=== PATIENT | male | born 1995 | race Caucasian/White ===

== ENCOUNTER 2019-07-15 08:51 | Emergency (ER) | payer BC ==
[~2019-07-15] VITALS: Ht 170.2 cm; Wt 89.0 kg
[2019-07-15 09:41] LABS: BASOPHILS % (AUTO) 0.2 % (0-1); EOSINOPHILS # (AUTO) 0.1 X10'3 (0-0.9); EOSINOPHILS % (AUTO) 1.1 % (0-6); HEMATOCRIT 52.5 % (42.0-52.0); LYMPHOCYTES # (AUTO) 2.5 X10'3 (1.1-4.8); LYMPHOCYTES % (AUTO) 25.3 % (21-51); MEAN CORPUSCULAR HEMOGLOBIN 31.2 PG (27.0-31.0); MEAN CORPUSCULAR HGB CONC 34.3 g/dL (33.0-36.5); MEAN CORPUSCULAR VOLUME 90.9 FL (78-98); MEAN PLATELET VOLUME 7.2 FL (7.4-10.4); MONOCYTES # (AUTO) 0.6 X10'3 (0-0.9); MONOCYTES % (AUTO) 5.7 % (2-12); NEUTROPHILS # (AUTO) 6.8 X10'3 (1.8-7.7); NEUTROPHILS % (AUTO) 67.7 % (42-75); PLATELET COUNT 268 X10'3 (140-440); RED BLOOD COUNT 5.77 X10'6 (4.70-6.10); RED CELL DISTRIBUTION WIDTH 12.7 % (11.5-14.5)
[2019-07-15 09:44] LABS: CLARITY,URINE SLIGHTLY CLOUDY (Clear); COLOR,URINE YELLOW (Yellow); GLUCOSE, URINE NEGATIVE (Neg); KETONES,URINE NEGATIVE (Neg); LEUKOCYTE ESTERASE ,URINE NEGATIVE (Neg); NITRITES, URINE NEGATIVE (Neg); OCCULT BLOOD,URINE TRACE-INTACT (Neg); PROTEIN,URINE NEGATIVE (Neg); UROBILINOGEN,URINE 0.2 E.U/dL (0.2-1.0)
[2019-07-15] MEDS ORDERED: normal saline 1000ML IV soln IVB ONE (09:45)
[2019-07-15] MEDS ORDERED: ondansetron/PF 4mg/2ml inj IV ONE (09:45)
[2019-07-15] MEDS ORDERED: morphine 4 MG/ML inj SYRINge IV PRN (09:45)
[2019-07-15 09:50] LABS: UA COLLECTION TYPE VOIDED
[2019-07-15 09:51] LABS: BACTERIA,URINE FEW /HPF (Neg); MUCUS STRANDS FEW /LPF (Neg); RBC,URINE 0-2 /HPF (0-2); SQUAMOUS EPITHELIAL CELL,UR FEW /LPF (FEW); WBC,URINE 0-4 /HPF (0-4)
[2019-07-15 10:00] LABS: ALANINE AMINOTRANSFERASE 38 U/L (12-78); ALBUMIN 4.1 G/DL (3.4-5.0); ALBUMIN/GLOBULIN RATIO 1.1 (1.1-1.5); ALKALINE PHOSPHATASE 85 IU/L (46-116); ANION GAP 11 (8-16); ASPARTATE AMINO TRANSFERASE 17 U/L (10-37); BILIRUBIN,TOTAL 0.4 MG/DL (0.1-1.0); BLOOD UREA NITROGEN 18 MG/DL (7-18); BUN/CREATININE RATIO 18.4 (5.4-32.0); CHLORIDE 104 MMOL/L (99-107); CREATININE 0.98 MG/DL (0.60-1.10); GLUCOSE 94 MG/DL (70-104); LIPASE 70 U/L (73-393); SODIUM 141 MMOL/L (135-145); TOTAL PROTEIN 7.8 G/DL (6.4-8.2); eGFR > 90 ML/MIN
--- NOTE | 2019-07-15 10:17 | NUR ---
IV site obtained, zofran given for nausea. Pt's IV fluid and morphine to be administered upon return from CT scan. Pt transported to CT via w/c at this time.
[2019-07-15] MEDS ORDERED: iohexol 300mg/ml 100ml inj. ONE (10:24)
--- NOTE | 2019-07-15 11:04 | NUR ---
Pt reports the pain in the left lower quadrant is increased from prior to the pain medication. Pt's IV fluid bolus is infusing wide open.
[2019-07-15] MEDS ORDERED: sucralfate 1gm/10ml UD suspension PO STA (12:03)
[2019-07-15] MEDS ORDERED: mag hydrox/Alum hydrox/simeth 30ml oral suspension PO ONE (12:05)
[2019-07-15] MEDS ORDERED: LIDOcaine Viscous 15ml cup MM PRN (12:05)
[2019-07-15 12:22] VITALS: BP 109/81
--- NOTE | 2019-07-15 12:29 | NUR ---
PT GIVEN GI COCKTAIL AND PT AMBULATED TO BR WITH STEADY GAIT
[2019-07-15] MEDS ORDERED: OMEP40CA13 PO (13:11)
[2019-07-15] MEDS ORDERED: HYDR-3965 PO (13:11)
== END 2019-07-15 13:31 | disposition home or self-care (01) ==
LOC: ER 08:52
DX: R10.12 Left upper quadrant pain (principal); R19.7 Diarrhea, unspecified; R10.32 Left lower quadrant pain; Z98.890 Other specified postprocedural states; Z90.49 Acquired absence of other specified parts of digestive tract; Z79.899 Other long term (current) drug therapy
CPT/HCPCS: 36415; 74177; 76700; 80053; 81001; 83690; 85025; 85610; 96361; 96374; 96375; 99284; J2270; J2405; J7030; Q9967

== ENCOUNTER 2020-11-04 13:52 | Emergency (ER) | payer BC, OTHER ==
[~2020-11-04] VITALS: Ht 170.2 cm; Wt 69.1 kg
[2020-11-04 14:59] LABS: BASOPHILS % (AUTO) 0.2 % (0-1); EOSINOPHILS # (AUTO) 0.1 X10'3 (0-0.9); EOSINOPHILS % (AUTO) 0.6 % (0-6); HEMATOCRIT 50.9 % (42.0-52.0); HEMOGLOBIN 17.4 g/dl (14.0-17.9); LYMPHOCYTES # (AUTO) 2.7 X10'3 (1.1-4.8); LYMPHOCYTES % (AUTO) 22.2 % (21-51); MEAN CORPUSCULAR HEMOGLOBIN 31.8 PG (27.0-31.0); MEAN CORPUSCULAR HGB CONC 34.2 g/dL (33.0-36.5); MEAN CORPUSCULAR VOLUME 93.1 FL (78-98); MEAN PLATELET VOLUME 7.2 FL (7.4-10.4); MONOCYTES # (AUTO) 0.6 X10'3 (0-0.9); MONOCYTES % (AUTO) 4.9 % (2-12); NEUTROPHILS # (AUTO) 8.7 X10'3 (1.8-7.7); NEUTROPHILS % (AUTO) 72.1 % (42-75); PLATELET COUNT 343 X10'3 (140-440); RED BLOOD COUNT 5.47 X10'6 (4.70-6.10); RED CELL DISTRIBUTION WIDTH 12.8 % (11.5-14.5)
[2020-11-04 15:07] LABS: ALANINE AMINOTRANSFERASE 23 U/L (12-78); ALBUMIN 4.4 G/DL (3.4-5.0); ALBUMIN/GLOBULIN RATIO 1.2 (1.1-1.5); ANION GAP 9 (8-16); ASPARTATE AMINO TRANSFERASE 12 U/L (10-37); BILIRUBIN,TOTAL 0.4 MG/DL (0.1-1.0); BLOOD UREA NITROGEN 13 MG/DL (7-18); BUN/CREATININE RATIO 13.5 (5.4-32.0); CALCIUM 9.1 MG/DL (8.5-10.1); CHLORIDE 103 MMOL/L (99-107); CREATININE 0.96 MG/DL (0.60-1.10); GLUCOSE 98 MG/DL (70-104); POTASSIUM 4.2 MMOL/L (3.5-5.1); SODIUM 139 MMOL/L (135-145); TOTAL CARBON DIOXIDE 26.7 MMOL/L (24-32); TOTAL PROTEIN 8.1 G/DL (6.4-8.2); eGFR > 90 ML/MIN
[2020-11-04 15:08] LABS: ALKALINE PHOSPHATASE 114 IU/L (46-116); ETHANOL < 0.010 GM/DL (0.0-0.010)
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
[2020-11-04 15:38] LABS: CLARITY,URINE CLEAR (Clear); COLOR,URINE STRAW (Yellow); GLUCOSE, URINE NEGATIVE (Neg); KETONES,URINE NEGATIVE (Neg); LEUKOCYTE ESTERASE ,URINE NEGATIVE (Neg); NITRITES, URINE NEGATIVE (Neg); OCCULT BLOOD,URINE NEGATIVE (Neg); PH,URINE 6.5 (4.8-8.0); PROTEIN,URINE NEGATIVE (Neg)
[2020-11-04 15:40] LABS: UA COLLECTION TYPE NON-SPECIFIED
[2020-11-04 15:45] LABS: URINE AMPHETAMINE SCREEN NEGATIVE (Neg); URINE BARBITUATE SCREEN NEGATIVE (Neg); URINE BENZODIAZEPINES SCREEN NEGATIVE (Neg); URINE CANNABINOID SCREEN POSITIVE (Neg); URINE COCAINE SCREEN NEGATIVE (Neg); URINE METHADONE SCREEN NEGATIVE (Neg); URINE OPIATE SCREEN NEGATIVE (Neg); URINE PHENCYCLIDINE SCREEN NEGATIVE (Neg)
[2020-11-04] MEDS ORDERED: NO HOME MEDS (16:11)
--- NOTE | 2020-11-04 17:09 | NUR ---
Pt awake and sitting on edge of the bed. He is mildly anxious and restless but easily redirected and willing to talk. Pt remains having SI and desires to go in-pt for help.
--- NOTE | 2020-11-04 19:11 | NUR ---
[facility] AT BEDSIDE WITH PT
--- NOTE | 2020-11-04 19:56 | NUR ---
Pt placed on 5150 by [facility]
--- NOTE | 2020-11-04 20:03 | NUR ---
Pt is cooperative with 1:1 assessment. He states that he is not feeling suicidal right now and does not want to hurt himself, but he keeps having the thoughts of doing so. "I just want to do the right thing and get the help I need. "
--- NOTE | 2020-11-04 21:35 | NUR ---
[facility] called, Pt has been accepted at [facility]. Accepting Dr. is Dr. Hampton. Pt will be transferred in AM
--- NOTE | 2020-11-05 00:10 | NUR ---
pt asleep on R side, RR 16
--- NOTE | 2020-11-05 02:29 | NUR ---
Pt resting on back respirations even and unlabored
--- NOTE | 2020-11-05 04:20 | NUR ---
pt asleep on L side RR 14
[2020-11-05 05:37] VITALS: BP 123/81
--- NOTE | 2020-11-05 07:00 | NUR ---
Received pt asleep in bed without signs of distress.
--- NOTE | 2020-11-05 09:00 | NUR ---
Pt awoke for breakfast and is cooperative with am assessment. Pt is ok with going to [facility].
--- NOTE | 2020-11-05 11:00 | NUR ---
Pt resting quietly on bed without complaints.
--- NOTE | 2020-11-05 11:10 | NUR ---
[facility] discharge coordinator called to say they are ready for the patient to be transferred upstairs.
--- NOTE | 2020-11-05 11:50 | NUR ---
Pt was transferred upstairs to [facility] in w/c accompanied by Alejo FRANCOIS and .
== END 2020-11-05 11:50 | disposition home or self-care (01) ==
LOC: ER 13:53
DX: R45.851 Suicidal ideations (principal); Z90.89 Acquired absence of other organs
CPT/HCPCS: 36415; 80053; 80305; 80320; 81003; 85025; 99285

== ENCOUNTER 2020-11-05 09:36 | Inpatient (IN) | payer BC, MEDICAID ==
[~2020-11-05] VITALS: Ht 170.2 cm; Wt 66.8 kg
[~2020-11-05 09:36] MED LIST: NO HOME MEDS
[2020-11-05 12:00] VITALS: BP 138/89
[2020-11-05] MEDS ORDERED: acetaminophen 325mg tablet PO PRN ×2 (12:10)
[2020-11-05] MEDS ORDERED: traZODone 50mg tablet PO PRN (12:10)
[2020-11-05] MEDS ORDERED: magnesium hydroxide 30ml (MOM) UD suspension PO PRN (12:10)
[2020-11-05] MEDS ORDERED: LORazepam 1 MG tablet PO PRN (12:10)
[2020-11-05] MEDS ORDERED: mag hydrox/Alum hydrox/simeth 30ml oral suspension PO PRN (12:10)
[2020-11-05] MEDS ORDERED: loperamide 2mg capsule PO PRN (12:10)
--- NOTE | 2020-11-05 18:07 | NUR ---
ADMIT NOTE: Pt. admitted from ER overflow accompanied by security. Pt. restless and anxious upon arrival, stating, "I know my triggers". When RN asked pt. what he meant by this pt. stated, "nevermind". skin assessment done and admission process completed. Pt. cooperative with 1:1 and physical assessment. Pt. came to the ER for SI with plan to hang himself. However, when RN asked pt. if he was suicidal, pt. states, "no, I wouldn't act on it, I just had to say the right thing to get up here". Pt. reports heavy cannabis use "all day every day" up until 3 weeks ago. Pt. states 2.5 years ago he smoked cannabis "laced with something" and since then his has noticed "changes" in him. Pt.'s from him 6 months ago taking there kids with her. Pt. talked at length about home to get his and children back. Pt. reports he has a boy 4 years old and girl 1.5 y.o. Pt. Pt. reports he had a suicide attempt while in the [employer] 4 years ago after his first fiancee left him. Pt. reports he was given an honorable discharge out of the [employer] after 1 year because he could not wake up on time to go to formation sometimes. Pt. is bizarre at times, during skin assessment pt. stood at attention and stated, "Is this because we are getting deployed soon?". Pt. states he feels uneasy on the unit because "drug tweakers make him angry". Pt. reports passive SI. Denies HI, A/V hallucinations.
[2020-11-05 19:34] VITALS: BP 130/72
--- NOTE | 2020-11-05 23:56 | NUR ---
Nursing Progress Note: Legal hold:5150 Client on involuntary status for GD/DTS/DTO: DTS Report received from nurse with use of SBAR: Jeannine FRANCOIS Why are they here: Pt. admitted from ER overflow accompanied by security. Pt. restless and anxious upon arrival, stating, "I know my triggers". When RN asked pt. what he meant by this pt. stated, "nevermind". skin assessment done and admission process completed. Pt. cooperative with 1:1 and physical assessment. Pt. came to the ER for SI with plan to hang himself. However, when RN asked pt. if he was suicidal, pt. states, "no, I wouldn't act on it, I just had to say the right thing to get up here". Pt. reports heavy cannabis use "all day every day" up until 3 weeks ago. Pt. states 2.5 years ago he smoked cannabis "laced with something" and since then his has noticed "changes" in him. Pt.'s from him 6 months ago taking there kids with her. Pt. talked at length about how to get his and children back. Pt. reports he has a boy 4 years old and girl 1.5 y.o. Pt. reports he had a suicide attempt while in the [employer] 4 years ago after his first fiancee left him. Pt. reports he was given an honorable discharge out of the [employer] after 1 year because he could not wake up on time to go to formation sometimes. Pt. is bizarre at times, during skin assessment pt. stood at attention and stated, "Is this because we are getting deployed soon?". Pt. states he feels uneasy on the unit because "drug tweakers make him angry". Pt. reports passive SI. Denies HI, A/V hallucinations. Assessment What has happened this shift: At shift change pt is observed sitting in his room reading a book quietly. He is cooperative on assessment and talks about how being up here is "a little weird" but states "I am doing what I need to do." He explains that he is not currently feeling suicidal and he does not actually want to hurt or kill himself, but the thoughts were intrusive and came and went. "I want to be here, especially for my kids. 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 Pt then tells rfp writer that he has a supportive family and has been living with his parents. "I got weighed today and I was surprised at how little I weight, years ago I used to be 220. I would like to get back up to 175 I think that is a healthy weight for me." I haven't been eating that much though because I am in my parents house and that is their food, I don't want to eat it. I want to show them I can do it myself, I shouldn't need anyone's help." S/I, H/I: intrusive thought of SI that come and go, but pt states he does not want to hurt himself. A/VH: denies Sleep: see sleep assessment ADL's: self care Group attendance: NA Were meds taken: no meds scheduled Any med S/E: NA Mental Status Exam Appearance: clean, wearing green unit scrubs Eye contact: good eye contact Behavior: isolates to his room, talkative on assessment Speech: pressured at times Mood: reminiscing Affect: intense at times Thought process: Linear Thought Content: guilt about the past Cognition: fair Insight: fair Judgment: fair Interventions PRN's used: none Therapeutic interventions: 1:1 assessment at bedside, therapeutic listening, reassurance, Q15 minute safety checks Restraints/seclusion/emergency medication: none Justification of Continued Inpatient Treatment: Pt needs crisis intervention, medication stabilization. He continues to have intrusive SI thoughts.
[2020-11-06 07:18] VITALS: BP 130/90
[2020-11-06] MEDS ORDERED: ESCITALOPRAM OXALATE 5 MG TABLET PO ONE (10:10)
[2020-11-06 11:15] LABS: HEMOGLOBIN A1C 5.6 % (4.5-6.2)
[2020-11-06 11:22] LABS: CHOL/HDL RATIO 4.7 (0.00-4.99); CHOLESTEROL 182 MG/DL (0-200); HDL CHOLESTEROL 39 MG/DL (35-60); LDL CHOLESTEROL 116 MG/DL (50-100); TRIGLYCERIDES 209 MG/DL (20-135)
[2020-11-06] MEDS ORDERED: pneumococcal 23-VAL P-sac vacc 25 mcg/0.5ml vial IMVAC ONE (12:35)
--- NOTE | 2020-11-06 17:18 | NUR ---
Nursing Progress Note: Legal hold:5150 Client on involuntary status for GD/DTS/DTO: DTS Report received from nurse with use of SBAR: PRISCILA Cervantes Why are they here: Pt. admitted from ER overflow accompanied by security. Pt. restless and anxious upon arrival, stating, "I know my triggers". When RN asked pt. what he meant by this pt. stated, "nevermind". skin assessment done and admission process completed. Pt. cooperative with 1:1 and physical assessment. Pt. came to the ER for SI with plan to hang himself. However, when RN asked pt. if he was suicidal, pt. states, "no, I wouldn't act on it, I just had to say the right thing to get up here". Pt. reports heavy cannabis use "all day every day" up until 3 weeks ago. Pt. states 2.5 years ago he smoked cannabis "laced with something" and since then his has noticed "changes" in him. Pt.'s from him 6 months ago taking there kids with her. Pt. talked at length about how to get his and children back. Pt. reports he has a boy 4 years old and girl 1.5 y.o. Pt. reports he had a suicide attempt while in the [employer] 4 years ago after his first fiancee left him. Pt. reports he was given an honorable discharge out of the [employer] after 1 year because he could not wake up on time to go to formation sometimes. Pt. is bizarre at times, during skin assessment pt. stood at attention and stated, "Is this because we are getting deployed soon?". Pt. states he feels uneasy on the unit because "drug tweakers make him angry". Pt. reports passive SI. Denies HI, A/V hallucinations. Assessment What has happened this shift: Received pt sleeping in bed at shift change. Patient was awakened by staff to attend breakfast in the community room. Dr. Hampton ordered Lexapro 5 mg which was given as now dose. Lexapro will be increased to 10 mg 11/07/20. Patient is medication compliant. Patient denies SI/HI. He is mostly concerned about his children, that his has the children at this time, and he only has supervised visitation. S/I, H/I: Denies. A/VH: denies Sleep: 6.5 hrs NOC ADL's: Independent. Group attendance: NA Were meds taken: Yes. Any med S/E: NA Mental Status Exam Appearance: clean, wearing green unit scrubs Eye contact: good eye contact Behavior: isolates to his room Speech: WNL Mood: Depressed. Affect: frustrated over losing children. Thought process: Linear Thought Content: Seeing his children. Cognition: fair Insight: fair Judgment: fair Interventions PRN's used: none Therapeutic interventions: 1:1 assessment at bedside, therapeutic listening, reassurance, Q15 minute safety checks Restraints/seclusion/emergency medication: none Justification of Continued Inpatient Treatment: Pt needs crisis intervention, medication stabilization. He continues to have intrusive SI thoughts.
[2020-11-06 19:21] VITALS: BP 130/73
--- NOTE | 2020-11-07 00:35 | NUR ---
Nursing Progress Note Legal hold: 5150 for being a danger to himself Report received from Gabrielle FRANCOIS with use of SBAR Why are they here: The patient is a 25 year old who presented to the ER after being seen by [facility] for a mental health evaluation. On arrival to the ER he was labile and reported he was feeling suicidal. He was unable to contract for safety and was put on a [address] [facility]. He has a history of suicide attempts while in the [employer]. Assessment What has happened this shift: One to one with the patient to assess for severity of depressive symptoms and self harm risk. The patient is on q 15 minute safety checks and has not had any self injurious behaviors on the unit either reported or observed. He appears his stated age and well groomed. He is wearing appropriate street clothes and has had no behaviors that have required or interventions. He is alert and oriented. When asked how his mood was he stated that he felt alright and then added that he felt better and less depressed when out of his room and engaged with peers. He denied having active or passive suicidal thoughts and stated that after discharge he wants to "stay on the right track for my kids and to make sure I'm around for them and myself" He maintained adequate eye contact. His affect was congruent to stated mood. His replies to the assessment questions were logical and appropriate. He stated that this evening his anxiety was low. He stated that he has been sleeping very well and he did not take any PRN sleep medications last night. Psychotic symptoms were denied and none were apparent during the assessment. Insight and judgement are fair. He is taking care of his ADLs without prompting. Speech is spontaneous and with a moderate rate and rhythm. Justification of Continued Inpatient Treatment: Medication stabilization continues. Will continue to assess for self harm risk and for resolution of depressive symptoms.
[2020-11-07 07:00] VITALS: BP 116/70
[2020-11-07] MEDS: ESCITALOPRAM OXALATE 5 MG TABLET PO SCH (08:11)
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
[2020-11-07 20:15] VITALS: BP 144/90
--- NOTE | 2020-11-07 21:25 | NUR ---
Nursing Progress Note: Legal hold: 5150 for being a danger to self Report received from Esau FRANCOIS with use of SBAR Why are they here: The patient is a 25 year old who presented to the ER after being seen by [facility] for a mental health evaluation. On arrival to the ER he was labile and reported he was feeling suicidal. He was unable to contract for safety and was put on a 5150 hold by [facility]. He has a history of suicide attempts while in the [employer]. Assessment What has happened this shift: The patient was up on the unit but by himself. He was cooperative with the nursing assessment. He appeared agitated and angry. He stated "I feel like a fucking monster" "I feel like a piece of shit" He then gave a long and and emotional account of the relationship with his and their breakup. He also talked about his childhood traumas. At times he seemed close to tears and at other times he was angry. He stated that he feels he does need to be here. Stated he wants to get better for his kids. He stated that he had talked to the social welfare research worker and things were brought up that he usually does not talk about. He verbalizes quilt over past mistakes. Psychotic symptoms are denied. He denies suicidal thoughts currently. He maintains adequate eye contact. Insight and judgement are fair. He is taking care of his ADLs independently. He has not had any behaviors that require redirection. He is alert and oriented. His recount of past difficulties was poorly focused and emotionally charged but logical. Thought content focused on past traumas, relationship conflicts, and quilt. Justification of Continued Inpatient Treatment: The patient's mood is depressed and he is feeling helpless and hopeless about his life.
[2020-11-08] MEDS: ESCITALOPRAM OXALATE 5 MG TABLET PO SCH (07:35)
[2020-11-08 07:37] VITALS: BP 118/72
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
[2020-11-08 20:00] VITALS: BP 147/85
--- NOTE | 2020-11-09 01:41 | NUR ---
NURSING PROGRESS NOTE Legal hold:[id number] Client on involuntary status for GD/DTS/DTO: DTS Report received from PRISCILA Cervantes with use of SBAR: Why are they here: Came to the ER for SI with plan to hang himself. However, when RN asked pt. if he was suicidal, pt. states, "no, I wouldn't act on it, I just had to say the right thing to get up here". Pt. reports heavy cannabis use "all day every day" up until 3 weeks ago. Pt. states 2.5 years ago he smoked cannabis "laced with something" and since then his has noticed "changes" in him. Pt.'s from him 6 months ago taking there kids with her. Pt. reports he had a suicide attempt while in the [employer] 4 years ago after his first fiancee left him. Pt. reports he was given an honorable discharge out of the [employer] after 1 year because he could not wake up on time to go to formation sometimes. Pt. is bizarre at times, during skin assessment pt. stood at attention and stated, "Is this because we are getting deployed soon?". Assessment What has happened this shift: Patient is awake and socializing following shift change. He socializes with roommate, he also joins an evening medication group. 1:1 interview at bedside. Patient states he is frustrate because he is here, "I got myself into this situation." He denies S/I or H/I. No hallucinations. Patient states a long history of depression. Poor eye contact. Patient is friendly and cooperative. S/I, H/I: Denies. A/VH: Denies. Sleep: None ADL's: Independent. Group attendance: No group on nights. Were meds taken: Yes. Any med S/E: none Mental Status Exam Appearance: Clean, wearing scrubs. Eye contact: Fair. Behavior: Friendly. Speech: Normal rate, rhythm, and tone. Mood: Some depression. Affect: Constricted. Thought process: Linear. Thought Content: Feeling depressed. Cognition: Oriented X4. Insight: Poor Judgment: Fair. Interventions PRN's used: None. Therapeutic interventions: 1:1 assessment at bedside, therapeutic listening, reassurance, Q15 minute safety checks, medication education Restraints/seclusion/emergency medication: none Justification of Continued Inpatient Treatment: Pt needs crisis intervention, medication stabilization. He continues to have intrusive SI thoughts.
[2020-11-09 07:37] VITALS: BP 111/64
[2020-11-09] MEDS: ESCITALOPRAM OXALATE 5 MG TABLET PO SCH (07:56)
--- NOTE | 2020-11-09 10:49 | NUR ---
Great appetite, 75-100% PO intake. No nutrition problem. Recommend: 1. continue regular diet 2. bowel care as needed 3. weekly weights Addendum: 11/09/20 at [address] Amended: Links added.
--- NOTE | 2020-11-09 14:47 | NUR ---
NURSING PROGRESS NOTE Legal hold:[id number] Client on involuntary status for DTS Report received from PRISCILA Burnette with use of SBAR: Why are they here: Came to the ER for SI with plan to hang himself. However, when RN asked pt. if he was suicidal, pt. states, "no, I wouldn't act on it, I just had to say the right thing to get up here". Pt. reports heavy cannabis use "all day every day" up until 3 weeks ago. Pt. states 2.5 years ago he smoked cannabis "laced with something" and since then his has noticed "changes" in him. Pt.'s from him 6 months ago taking there kids with her. Pt. reports he had a suicide attempt while in the [employer] 4 years ago after his first fiancee left him. Pt. reports he was given an honorable discharge out of the [employer] after 1 year because he could not wake up on time to go to formation sometimes. Pt. is bizarre at times, during skin assessment pt. stood at attention and stated, "Is this because we are getting deployed soon?". Assessment What has happened this shift: Up for breakfast, took meds, back to sleep until 1100. 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 S/I, H/I: Denies. A/VH: denies Sleep: none ADL's: Independent. Group attendance: yes Were meds taken: Yes. Any med S/E: none Mental Status Exam Appearance: clean, wearing green unit scrubs Eye contact: good eye contact Behavior: cooperative Speech: WNL Mood: Depressed Affect: constricted Thought process: linear Thought Content: what he will do at discharge Cognition: alert Insight: poor Judgment: fair Interventions PRN's used: none Therapeutic interventions: 1:1 assessment at bedside, therapeutic listening, reassurance, Q15 minute safety checks, medication education Restraints/seclusion/emergency medication: none Justification of Continued Inpatient Treatment: Pt needs crisis intervention, medication stabilization. He continues to have intrusive SI thoughts.
[2020-11-09 19:00] VITALS: BP 118/68
--- NOTE | 2020-11-10 00:48 | NUR ---
NURSING PROGRESS NOTE Legal hold:[id number] Client on involuntary status for GD/DTS/DTO: DTS Report received from PRISCILA Cifuentes with use of SBAR: Why are they here: Came to the ER for SI with plan to hang himself. However, when RN asked pt. if he was suicidal, pt. states, "no, I wouldn't act on it, I just had to say the right thing to get up here". Pt. reports heavy cannabis use "all day every day" up until 3 weeks ago. Pt. states 2.5 years ago he smoked cannabis "laced with something" and since then his has noticed "changes" in him. Pt.'s from him 6 months ago taking there kids with her. Pt. reports he had a suicide attempt while in the [employer] 4 years ago after his first fiancee left him. Pt. reports he was given an honorable discharge out of the [employer] after 1 year because he could not wake up on time to go to formation sometimes. Pt. is bizarre at times, during skin assessment pt. stood at attention and stated, "Is this because we are getting deployed soon?". Assessment What has happened this shift: Patient is sitting in the day room watching television throughout the evening. Patient admits to being frustrated with other patients during the day. Patient exhibits guarded behavior, eye contact varies. 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 A/VH: Denies. Sleep: None ADL's: Independent. Group attendance: No group on nights. Were meds taken: No meds ordered. Any med S/E: none Mental Status Exam Appearance: Clean, wearing scrubs. Eye contact: Fair. Behavior: Friendly. Speech: Normal rate, rhythm, and tone, pressured at times. Mood: Some depression. Affect: Constricted. Thought process: Circumstantiality. Thought Content: Feeling depressed. Cognition: Oriented X4. Insight: Poor Judgment: Fair. Interventions PRN's used: None. Therapeutic interventions: 1:1 assessment at bedside, therapeutic listening, reassurance, Q15 minute safety checks, medication education Restraints/seclusion/emergency medication: none Justification of Continued Inpatient Treatment: Pt needs crisis intervention, medication stabilization. He continues to have intrusive SI thoughts.
[2020-11-10 07:30] VITALS: BP 111/78
[2020-11-10] MEDS: ESCITALOPRAM OXALATE 5 MG TABLET PO SCH (08:10)
--- NOTE | 2020-11-10 13:08 | NUR ---
NURSING PROGRESS NOTE Legal hold:[id number] Client on involuntary status for DTS Report received from PRISCILA Burnette with use of SBAR: Why are they here: Came to the ER for SI with plan to hang himself. However, when RN asked pt. if he was suicidal, pt. states, "no, I wouldn't act on it, I just had to say the right thing to get up here". Pt. reports heavy cannabis use "all day every day" up until 3 weeks ago. Pt. states 2.5 years ago he smoked cannabis "laced with something" and since then his has noticed "changes" in him. Pt.'s from him 6 months ago taking there kids with her. Pt. reports he had a suicide attempt while in the [employer] 4 years ago after his first fiancee left him. Pt. reports he was given an honorable discharge out of the [employer] after 1 year because he could not wake up on time to go to formation sometimes. Pt. is bizarre at times, during skin assessment pt. stood at attention and stated, "Is this because we are getting deployed soon?". Assessment What has happened this shift: Slept in then up for breakfast, medication compliant. Talks and interacts with others, attends group and seeks out his peers. Appears to have some narcissistic traits as well as perhaps mild grandiosity. Does not seem to take responsibility for restraining order against him from . Has ideas of doing things that do not seem realistic. 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 Per Dr. Hampton may be discharged to home on Thursday. S/I, H/I: Denies. A/VH: denies Sleep: none ADL's: Independent. Group attendance: yes Were meds taken: Yes. Any med S/E: none Mental Status Exam Appearance: clean, wearing green unit scrubs Eye contact: intermittent eye contact Behavior: cooperative Speech: WNL Mood: mild depression Affect: constricted Thought process: linear Thought Content: what he will do after discharge Cognition: alert Insight: poor Judgment: fair Interventions PRN's used: none Therapeutic interventions: 1:1 assessment at bedside, therapeutic listening, reassurance, Q15 minute safety checks, medication education Restraints/seclusion/emergency medication: none Justification of Continued Inpatient Treatment: Pt needs crisis intervention, medication stabilization. He continues to have intrusive SI thoughts.
--- NOTE | 2020-11-10 13:50 | NUR ---
1:1 session: Met with pt after process group. Earlier in the morning and this ELECTROLYSIS INVESTIGATOR spoke regarding pt's upcoming medical appt at [facility] to establish care with a medical provider and that is planning on following pt as his psychiatric provider for out pt care and tx and the need for pt to also establish with a ELECTROLYSIS INVESTIGATOR to establish psychotherapy treatment.Upon discharge pt will have appointments with both and this ELECTROLYSIS INVESTIGATOR at [facility]. This information was brought and discussed with pt and stated he is very grateful and looking forward to his care and that he is feeling hopeful that good changes can start to happen in his life. BALTA March
[2020-11-10 20:00] VITALS: BP 123/88
--- NOTE | 2020-11-11 01:13 | NUR ---
NURSING PROGRESS NOTE Legal hold:[id number] Client on involuntary status for DTS Report received from PRISCILA Dhillon with use of SBAR: Why are they here: Came to the ER for SI with plan to hang himself. However, when RN asked pt. if he was suicidal, pt. states, "no, I wouldn't act on it, I just had to say the right thing to get up here". Pt. reports heavy cannabis use "all day every day" up until 3 weeks ago. Pt. states 2.5 years ago he smoked cannabis "laced with something" and since then his has noticed "changes" in him. Pt.'s from him 6 months ago taking there kids with her. Pt. reports he had a suicide attempt while in the [employer] 4 years ago after his first fiancee left him. Pt. reports he was given an honorable discharge out of the [employer] after 1 year because he could not wake up on time to go to formation sometimes. Pt. is bizarre at times, during skin assessment pt. stood at attention and stated, "Is this because we are getting deployed soon?". Assessment What has happened this shift: Pt up on unit talking with other pts. Played a card game with staff and other pts. Affect bright and animated. Pt Says everything is good. He denies any depression. He says he has an apartment to return to. He talked about seeing Dr. Hampton as an out pt after discharge. Pt did not make any grandiose or delusional statements. Pt compliant with all care. S/I, H/I: Denies. A/VH: denies Sleep: Asleep at this time. ADL's: Independent. Group attendance: yes Were meds taken: Yes. Any med S/E: none Mental Status Exam Appearance: clean, wearing green unit scrubs Eye contact: good Behavior: cooperative Speech: WNL Mood: denies any depression Affect: Bright Thought process: linear Thought Content: what he will do after discharge Cognition: alert Insight: poor Judgment: fair Interventions PRN's used: none Therapeutic interventions: 1:1 assessment at bedside, therapeutic listening, reassurance, Q15 minute safety checks, medication education Restraints/seclusion/emergency medication: none Justification of Continued Inpatient Treatment: Pt needs crisis intervention, medication stabilization. He continues to have intrusive SI thoughts.
[2020-11-11 07:20] VITALS: BP 113/79
[2020-11-11] MEDS: ESCITALOPRAM OXALATE 5 MG TABLET PO SCH (07:58)
--- NOTE | 2020-11-11 13:41 | NUR ---
1:1 session:Met with pt in the smaller room across the nursing office. Presented with anxious mood anticipating his discharge tomorrow. Stated being on the unit has given him time to think and feeling more clearer on needed changes and will be following up to establish all of his health and psychiatric care and tx at [facility]. Looking forward to getting back to his apt.Pt went on stating he received a call from a good friend,Jenifer,this morning who resides locally and reported to pt that her mother,who Jenifer was taking care of in her home and wanted pt to know.Pt expressed concern for Jenifer and sadness in the loss of her mother. Stated once he gets back to his apt tomorrow and settled in he is going to contact Jenifer to see how she is doing. Pt will be following up with this GRINDER SET UP OPERATOR as well as at [facility] for continued outpt care and tx. BALTA March
--- NOTE | 2020-11-11 14:53 | NUR ---
NURSING PROGRESS NOTE Legal hold: [id number] Client on involuntary status for DTS Report received from Betsy Hairston RN with use of SBAR: Why are they here: Came to the ER for SI with plan to hang himself. However, when RN asked pt. if he was suicidal, pt. states, "no, I wouldn't act on it, I just had to say the right thing to get up here". Pt. reports heavy cannabis use "all day every day" up until 3 weeks ago. Pt. states 2.5 years ago he smoked cannabis "laced with something" and since then his has noticed "changes" in him. Pt.'s from him 6 months ago taking their kids with her. Pt. reports he had a suicide attempt while in the [employer] 4 years ago after his first fiance left him. Pt. reports he was given an honorable discharge out of the [employer] after 1 year because he could not wake up on time to go to formation sometimes. Assessment What has happened this shift: Pt in bed at change of shift. Met with RN for 1:1 assessment at the bedside after breakfast. Pt initially presents with an intense affect, then more at ease when talking about possibly discharging tomorrow. He's future oriented, talking about wanting to go back to school for criminal justice, and his affect brightens when he talks about his two children. States he plans to go to therapy and anger management classes. Pt received phone call from a friend and was visibly upset after the call. Sat with pt in the rec room, and he explained that he was ok, but that he was worried about his friend whose mother just . Pt visible on the unit throughout the day, social with his peers. S/I, H/I: denies A/VH: denies Sleep: reports getting good sleep last night. Slept 5 hours. Does not want any medication for sleep because he feels hell sleep better at home ADL's: independent Group attendance: yes Were meds taken: yes Any med S/E: none observed or reported Mental Status Exam Appearance: clean, wearing green hospital scrubs Eye contact: good Behavior: cooperative Speech: clear, normal rate and rhythm Mood: mild depression Affect: full Thought process: linear and goal directed Thought Content: future oriented, talking about returning to school and talking about his children Cognition: A&Ox3 Insight: fair Judgment: fair Interventions PRN's used: none Therapeutic interventions: 1:1 assessment at bedside, therapeutic listening, reassurance, Q15 minute safety checks, medication education Restraints/seclusion/emergency medication: none Justification of Continued Inpatient Treatment: Pt's mood has improved and will re-eval for readiness for discharge tomorrow
[2020-11-11 20:06] VITALS: BP 139/78
--- NOTE | 2020-11-12 00:45 | NUR ---
NURSING PROGRESS NOTE Legal hold:5250 Client on involuntary status for DTS Report received from RN with use of SBAR: Why are they here: Came to the ER for SI with plan to hang himself. However, when RN asked pt. if he was suicidal, pt. states, "no, I wouldn't act on it, I just had to say the right thing to get up here". Pt. reports heavy cannabis use "all day every day" up until 3 weeks ago. Pt. states 2.5 years ago he smoked cannabis "laced with something" and since then his has noticed "changes" in him. Pt.'s from him 6 months ago taking there kids with her. Pt. reports he had a suicide attempt while in the [employer] 4 years ago after his first fiancee left him. Pt. reports he was given an honorable discharge out of the [employer] after 1 year because he could not wake up on time to go to formation sometimes. Pt. is bizarre at times, during skin assessment pt. stood at attention and stated, "Is this because we are getting deployed soon?". Assessment What has happened this shift: Pt up on unit Played a card game with staff and other pts. Affect bright and animated. Pt says he is looking forward to discharge tomorrow. He wants to get back to his apartment and has a plan for out pt mental health care. Pt compliant with all care. S/I, H/I: Denies. A/VH: denies Sleep: Asleep at this time. ADL's: Independent. Group attendance: yes Were meds taken: Yes. Any med S/E: none Mental Status Exam Appearance: clean, wearing green unit scrubs Eye contact: good Behavior: cooperative Speech: WNL Mood: denies any depression Affect: Bright Thought process: linear Thought Content: what he will do after discharge Cognition: alert Insight: poor Judgment: fair Interventions PRN's used: none Therapeutic interventions: 1:1 assessment at bedside, therapeutic listening, reassurance, Q15 minute safety checks, medication education Restraints/seclusion/emergency medication: none Justification of Continued Inpatient Treatment: Pt needs crisis intervention, medication stabilization. He continues to have intrusive SI thoughts.
[2020-11-12 07:28] VITALS: BP 122/65
[2020-11-12] MEDS: ESCITALOPRAM OXALATE 5 MG TABLET PO SCH (08:01)
[2020-11-12] MEDS ORDERED: TRAZ-251 PO (12:27)
[2020-11-12] MEDS ORDERED: ESCI10TA66 PO (12:27)
[2020-11-12] MEDS ORDERED: ESCI5TAB25 PO (12:27)
--- NOTE | 2020-11-12 14:24 | NUR ---
Discharge: Pt discharged home via grandmother who came to pick him up. Discharge instructions explained to pt including f/u appt and medications. Pt verbalized understanding and signed and copy sent with the patient. All belongings returned to the patient and he signed as having received all. Pt was happy with bright affect and said he's excited to get back to life. Smoking cessation education provided.
== END 2020-11-12 12:58 | disposition home or self-care (01) | DRG 751 ==
LOC: ADULT MH 12:00
PROVIDERS: ADMIT Psychiatry & Neurology Psychiatry; ATTEND Psychiatry & Neurology Psychiatry
DX: F33.2 Major depressive disorder, recurrent severe without psychotic features (principal); R45.851 Suicidal ideations; F41.9 Anxiety disorder, unspecified; F17.210 Nicotine dependence, cigarettes, uncomplicated; F60.9 Personality disorder, unspecified
CPT/HCPCS: 36415; 80061; 83036; 87081